=== PATIENT | male | born 1940 ===

== ENCOUNTER 2019-04-11 11:14 | Emergency (ER) | payer MEDICARE, BC ==
[2019-04-11 11:26] VITALS: RESP 18; O2SAT 100
[2019-04-11] MEDS ORDERED: Oxymetazoline 0.05% Nasal Spray (30 ml) NS STA (11:58)
--- NOTE | 2019-04-11 12:16 | C.PDOC ---
History Of Present Illness 79-year-old male, whose past medical history includes anemia and hypertension, presents to the ED for evaluation of epistaxis in left nare which began yesterday. Patient states he was about to attend a sikhism service when he noted spontanous bleeding out of his left nare. Patient denies fever, chills, recent falls/trauma, bleeding down his throat, night sweats, or recent blood thinner use. Time Seen by Provider: 04/11/19 11:30 Chief Complaint (Nursing): ENT Problem History Per: Patient History/Exam Limitations: None Onset/Duration Of Symptoms: Hrs Current Symptoms Are (Timing): Still Present Anticoagulant/Antiplatlet Use?: No Past Medical History Reviewed: Historical Data, Nursing Documentation, Vital Signs Vital Signs: Last Vital Signs Temp 98.0 F 04/11/19 11:22 Pulse 59 L 04/11/19 11:22 Resp 18 04/11/19 11:22 BP 184/64 H 04/11/19 11:22 Pulse Ox 100 04/11/19 11:22 Primary Care Provider: Sam Ward - Medical History PMH: Anemia, HTN Surgical History: No Surg Hx Family History: States: Unknown Family Hx - Social History Hx Alcohol Use: Yes Hx Substance Use: No - Immunization History Hx Tetanus Toxoid Vaccination: No Hx Influenza Vaccination: Yes Hx Pneumococcal Vaccination: No Review Of Systems Constitutional: Negative for: Fever, Chills, Sweats ENT: Positive for: Other (left nare epistaxis ) Cardiovascular: Negative for: Chest Pain, Palpitations Respiratory: Negative for: Cough, Shortness of Breath Gastrointestinal: Negative for: Nausea, Vomiting Skin: Negative for: Rash, Lesions, Jaundice, Bruising Neurological: Negative for: Altered Mental Status, Headache, Dizziness Physical Exam - Physical Exam Appears: Non-toxic, No Acute Distress Skin: Normal Color, Warm, Dry Head: Atraumatic, Normacephalic Eye(s): bilateral: Normal Inspection, PERRL, EOMI Ear(s): Bilateral: Normal Nose: Epistaxis (left nare), No Septal Hematoma Oral Mucosa: Moist Tongue: Normal Appearing Lips: Normal Appearing Gingiva: Normal Appearing Throat: Normal, No Erythema, No Exudate, Other (unremarkable posterior oropharynx, no blood noted) Neck: Supple, Other (no meningeal signs) Lymphatic: Normal Exam Chest: Symmetrical, No Deformity, No Tenderness Cardiovascular: Rhythm Regular, No Murmur Respiratory: Normal Breath Sounds, No Rales, No Rhonchi, No Wheezing Gastrointestinal/Abdominal: Soft, No Tenderness, No Guarding, No Rebound Back: No CVA Tenderness, No Vertebral Tenderness Extremity: Normal ROM, Capillary Refill (less than 2 seconds ) Neurological/Psych: Oriented x3, Normal Speech, Normal Cognition ED Course And Treatment - Laboratory Results Result Diagrams: 04/11/19 12:38 04/11/19 12:38 O2 Sat by Pulse Oximetry: 100 (on RA) Pulse Ox Interpretation: Normal Procedure: Blank - Procedure Procedure:: Left nasal packing - Consent obtained: Consent obtained: Verbal - Performed by: Performed by:: Attending physician - Contraindications: Contraindications:: None - Location Location: Left, Nose - Post-Procedure Post-procedure:: Hemostasis achieved, Other (no posterior oropharyngeal blood noted) - Patient Tolerated Procedure Patient Tolerated Procedure:: Well (5.5cm rhino rocket to left nare; no blood in posterior pharynx) Medical Decision Making Medical Decision Making: Impression: 79-year-old male with left nare epistaxis since yesterday. No trauma or fall. No headache. No pus like drainage from nare. No septa hematoma noted. No current blood thinner usage. Differential diagnosis includes but is not limited to: * anterior epistaxis Plan: * bloodwork * Afrin NS * reassess and disposition Progress: Bloodwork ordered and reviewed. Afrin NS administered. 1315 No appreciable site of epistaxis site noted for cautery L nare packed: pt tolerated well and with good hemostasis 1419 mildly decreased hgb, 10.5 to 8.5, pt asymptomatic however and bleeding controlled stable steady gait w/ walker (pts baseline), no dark or bloody stool or recent trauma / fall no posterior bleed noted s/p packing continued good hemostasis clear for d/c home w/ return indications, scripts and f/u pt agreeable to plan Disposition - Disposition Referrals: Quinton Olson MD [Staff Provider] - Sam Ward MD [Medical Doctor] - [facility] [Outside] [facility] [Outside] [facility] [Outside] Disposition: HOME/ ROUTINE Disposition Time: 14:18 Condition: STABLE Additional Instructions: PETTY H[place], thank you for letting us take care of you today. Your provider was John Patterson and you were treated for NOSE BLEED. The emergency medical care you received today was directed at your acute symptoms. If you were prescribed any medication, please fill it and take as directed. It may take several days for your symptoms to resolve. Return to the Emergency Department if your symptoms worsen, do not improve, or if you have any other problems. Please contact your doctor or call one of the physicians/clinics you have been referred to that are listed on the Patient Visit Information form that is included in your discharge packet. Bring any paperwork you were given at discharge with you along with any medications you are taking to your follow up visit. Our treatment cannot replace ongoing medical care by a primary care provider outside of the emergency department. Thank you for allowing the [facility] team to be part of your care today. If you had an X-Ray or CT scan: A Radiologist will review the ED reading if any change in treatment is needed we will contact you. If you had a blood, urine, or wound culture: It will take several days for the results, if any change in treatment is needed we will contact you. If you had an STI test: It will take 48 hours for the results. Please call after 1 week if you have not heard back. Prescriptions: Amoxicillin/Clavulanate [Augmentin 875 MG-125 MG] 1 tab PO BID 7 Days #14 tab Instructions: Nosebleeds (DC) Forms: [employer] ([place]wana) - Clinical Impression Clinical Impression: Anterior epistaxis - Scribe Statement The provider has reviewed the documentation as recorded by the Scribe (Mago Mcfarlane) Provider Attestation: All medical record entries made by the Scribe were at my direction and personally dictated by me. I have reviewed the chart and agree that the record accurately reflects my personal performance of the history, physical exam, medical decision making, and the department course for this patient. I have also personally directed, reviewed, and agree with the discharge instructions and disposition.
[2019-04-11] MEDS ORDERED: Oxymetazoline 0.05% Nasal Spray (30 ml) NS ONE (12:20)
[2019-04-11 12:47] LABS: BASO % 0.3 % (0.0-2.0); EOS % 0.6 % (0.0-4.0); HEMOGLOBIN 8.5 g/dL (12.0-18.0); LYMPH # 0.6 K/uL (1.0-4.3); LYMPH % 10.3 % (20.0-40.0); MEAN CELL VOLUME 90.7 fL (80.0-94.0); MEAN CORPUSCULAR HEMOGLOBIN 32.7 pg (27.0-31.0); MEAN PLATELET VOLUME 8.5 fL (7.2-11.7); MONO # 0.4 K/uL (0.0-0.8); NEUT # 5.1 K/uL (1.8-7.0); NEUT % 82.8 % (50.0-75.0); NRBC % 0.1 % (0.0-2.0); RBC 2.61 Mil/uL (4.40-5.90); RED CELL DISTRIBUTION WIDTH 15.9 % (11.5-14.5); WHITE BLOOD COUNT 6.1 K/uL (4.8-10.8)
[2019-04-11 12:51] LABS: INR 1.1; PARTIAL THROMBOPLASTIN TIME 33.5 SECONDS (21-34); PROTHROMBIN TIME 12.4 SECONDS (9.7-12.2)
[2019-04-11 12:58] LABS: ALB/GLOB RATIO 1.3 (1.0-2.1); ALBUMIN 3.7 g/dL (3.5-5.0); ALT/SGPT 24 U/L (21-72); AST/SGOT 24 U/L (17-59); BLOOD UREA NITROGEN 26 mg/dL (9-20); GFR NON-AFRICAN AMERICAN > 60
[2019-04-11 14:49] VITALS: PULSE 50; TEMP 98.1
[2019-04-11 15:13] VITALS: BP 157/53
== END 2019-04-11 16:53 | disposition home or self-care (01) ==
LOC: C.ER 11:14
DX: R04.0 Epistaxis (principal)